=== PATIENT | female | born 1950 | race Caucasian/White ===

== ENCOUNTER 2017-03-18 09:20 | Emergency (ER) | payer SELFPAY ==
[2017-03-18] MEDS ORDERED: METHYLPREDNISOLONE PF 125MG/VIAL IVP ONE (09:44)
[2017-03-18] MEDS ORDERED: IPRATROPIUM/ALBUTEROL (0.5MG/3MG) NEB INH ONE (09:46)
--- NOTE | 2017-03-18 09:54 | Emergency Department Record ---
History of Present Illness - General Chief Complaint: Difficulty Breathing Stated Complaint: JUAN Time Seen by Provider: 03/18/17 09:38 Source: Patient Mode of Arrival: Ambulatory Limitations: No limitations - History of Present Illness Initial Comments: The patient is here due to having trouble breathing for 4 months. It has been getting progressively worse over the last 2 weeks so she called her PCP today and was told to go to the ER. She denies any CP, back pain, cough, fever, chills , or ST but is mainly having trouble when she breaths in. She has had mild SALEH for the last 2 weeks. The patient denies any hx of lung disease and has never smoked. MD Complaint: Shortness of breath Onset/Timin -: Month(s) Consistency: Constant Improves With: Nothing Worsens With: Movement - Related Data Previous Rx's Medication Instructions Recorded Albuterol Sulfate [Proair Hfa] 2 puff IH QID PRN #1 inhaler 03/18/17 Prednisone [Prednisone 20Mg] 40 mg PO DAILY #10 tab 03/18/17 Allergies Allergy/AdvReac Type Severity Reaction Status Date / Time No Known Allergies Allergy none Verified 03/18/17 09:35 Travel Screening - Travel/Exposure Within Last 30 Days Have you traveled within the last 30 days?: No - Travel/Exposure Within Last Year Have you traveled outside the [place] in the last year?: No - Additonal Travel Details Have you been exposed to anyone with a communicable illness?: No Review of Systems Constitutional: Denies: Chills, Fever Eyes: Denies: Eye discharge ENT: Denies: Congestion Respiratory: Reports: Dyspnea. Denies: Cough Past Medical History - SOCIAL HISTORY Smoking Status: Never smoker Alcohol Use: None Drug Use: None - RESPIRATORY Hx Respiratory Disorders: No - CARDIOVASCULAR Hx Cardio Disorders: No - NEURO Hx Neuro Disorders: No - GI Hx GI Disorders: No - Hx Genitourinary Disorders: No - ENDOCRINE Hx Endocrine Disorders: No Hx Thyroid Disease: Yes - MUSCULOSKELETAL Hx Musculoskeletal Disorders: No - PSYCH Hx Psych Problems: Yes Hx Depression: Yes - HEMATOLOGY/ONCOLOGY Hx Hematology/Oncology Disorders: No Family Medical History Any Significant Family History?: No Physical Exam - General General Appearance: Alert, Oriented x3, Cooperative, No acute distress - Head Head exam: Atraumatic, Normocephalic, Normal inspection - Eye Eye exam: Normal appearance, PERRL - ENT Throat exam: Normal inspection. negative: Tonsillar erythema, Tonsillar exudate - Neck Neck exam: Normal inspection, Full ROM. negative: Lymphadenopathy, Meningismus , Tenderness - Respiratory Respiratory exam: Normal lung sounds bilaterally, Stridor (at times when talking.). negative: Accessory muscle use (The patient is speaking in full sentences with no difficulty or dyspnea.), Decreased breath sounds, Wheezes - Cardiovascular Cardiovascular Exam: Regular rate, Normal rhythm, Normal heart sounds - GI/Abdominal GI/Abdominal exam: Soft, Normal bowel sounds. negative: Tenderness - Extremities Extremities exam: Normal inspection, Full ROM, Normal capillary refill. negative: Tenderness - Neurological Neurological exam: Normal gait. negative: Abnormal gait, Alert, Motor sensory deficit Course Vital Signs 03/18/17 09:26 Temperature 98.2 F Pulse Rate 72 Respiratory 18 Rate Blood Pressure 165/76 Pulse Ox 99 - Reevaluation(s) Reevaluation #1: The patient is doing better. She is breathing normally for her and is speaking in full sentences. She is having mild intermittent Stridor but again is conversing normally and has no stridor at rest when sitting and talking to me. Her RA biox is 99% and her lungs are clear. 03/18/17 11:26 Reevaluation #2: The patient is doing very well at this time. She denies any SOB or JUAN or ST and has no stridor at this time. I did discuss the CT results with her and the need for F/U with her PCP. 03/18/17 12:24 Medical Decision Making - Data Complexity MDM Data: Labs Ordered and/or Reviewed, X-Ray Ordered and/or Reviewed, EKG Ordered and/or Reviewed - Lab Data Result diagrams: 03/18/17 09:55 03/18/17 09:55 - EKG Data -: EKG Interpreted by Vt EKG: No Acute Changes, Normal EKG - Radiology Data Radiology results: Report reviewed (CXR: Neg ST Neck: Neg per Rad. Neck CT: Mild subglottic narrowing. O/W neg.) Disposition Disposition: Discharge Clinical Impression: Dyspnea Qualifiers: Dyspnea type: unspecified Qualified Code(s): R06.00 - Dyspnea, unspecified Disposition: Home, Self-Care Condition: (1) Good Instructions: Dyspnea (ED) Additional Instructions: Please use the inhaller and orals steroids as directed. Please see your PCP for recheck early next week. Please return to the ER for any increasing shortness of breath, fever, cough, or any pain. Prescriptions: Albuterol Sulfate [Proair Hfa] 2 puff IH QID PRN #1 inhaler PRN Reason: Cough And Difficulty Breathing Prednisone [Prednisone 20Mg] 40 mg PO DAILY #10 tab Forms: Patient Portal Access Time of Disposition: 12:29 Quality - Quality Measures Quality Measures: N/A - Blood Pressure Screening View Details: Yes Does Patient Have Any of the Following: No Blood Pressure Classification: Pre-Hypertensive BP Reading Systolic Measurement: 147 Diastolic Measurement: 83 Screening for High Blood Pressure: < Pre-Hypertensive BP, F/U Documented > [ G8950] Pre-Hypertensive Follow-up Interventions: Referral to alternative/primary care provider.
[2017-03-18 10:12] LABS: BASO % 0.3 % (0-6); EOS % 3.6 % (0-6); GRAN % 65.8 % (47-80); HEMATOCRIT 38.9 % (35.0-47.0); HEMOGLOBIN 12.2 gm/dl (11.6-16.0); LYMPH % 23.6 % (16-45); MEAN CELL VOLUME 90.3 fl (81-97); MEAN CORPUSCULAR HEMOGLOBIN 28.3 pg (27-33); MEAN CORPUSCULAR HGB CONC 31.4 g/dl (32-36); MEAN PLATELET VOLUME 10.4 fl (7.4-10.4); MONO % 6.7 % (0-9); PLATELET COUNT 340 K/uL (130-400); RED BLOOD COUNT 4.31 M/uL (3.80-5.40); RED CELL DISTRIBUTION WIDTH 14.7 % (11.5-14.5); WHITE BLOOD COUNT W/O DIFF 6.4 K/uL (4.2-12.2)
[2017-03-18 10:33] LABS: BLOOD UREA NITROGEN 15 mg/dL (8-23); CREATININE 0.5 mg/dL (0.5-0.9); EST GLOMERULAR FILTRATION RATE > 60 mL/min; GLUCOSE,RANDOM 98 mg/dL (74-109)
[2017-03-18 10:38] LABS: CKMB 2.1 ng/mL (<3.77); CREATINE PHOSPHOKINASE 90 U/L (26-192)
--- NOTE | 2017-03-19 12:38 | RADIOLOGY REPORT ---
EXAM: CHEST 2 VIEWS HISTORY: DIFFICULTY IN BREATHING. TECHNIQUE: Frontal and lateral views of the chest were performed. FINDINGS: Heart size is normal. Lung urbina are clear. Osseous structures are normal. IMPRESSION: NEGATIVE CHEST EXAMINATION. JOB NUMBER: [id number] MTDD
--- NOTE | 2017-03-19 12:40 | RADIOLOGY REPORT ---
EXAM: NECK, SOFT TISSUE HISTORY: DIFFICULTY IN BREATHING. TECHNIQUE: AP and lateral views of the soft tissues of the neck were performed. FINDINGS: Airway is patent. Epiglottis appears normal. Prevertebral soft tissues are normal. The osseous structures are normal. IMPRESSION: NEGATIVE SOFT TISSUES OF THE NECK. JOB NUMBER: [id number] MTDD
--- NOTE | 2017-03-19 12:55 | CT SCAN REPORT ---
EXAM: CT SCAN SOFT TISSUE NECK W CONTRAST HISTORY: STRIDOR TECHNIQUE. TECHNIQUE: Sequential axial images were obtained through the soft tissues of the neck after intravenous administration of 100 mL of Omnipaque-300 contrast material. Sagittal and coronal reformatted images were performed. FINDINGS: The naso and oropharynx appears normal. The tongue base appears normal. The epiglottis appears normal. True/false cords and trachea appear normal. There is mild narrowing of the subglottic airway, edema. Tracheal bronchiolitis is considered. Visualized lung apices appear normal. The mandibular and parotid glands appear normal. The visualized superior mediastinum appears normal. IMPRESSION: NARROWING OF THE SUBGLOTTIC AIRWAY, LIKELY RELATED TO CROUP. THE REMAINDER OF THE EXAMINATION IS UNREMARKABLE. JOB NUMBER: [id number] MTDD
== END 2017-03-18 12:40 | disposition home or self-care (01) ==
LOC: ER 09:20
DX: R06.00 Dyspnea, unspecified (principal); R06.1 Stridor
CPT/HCPCS: 99284 ×2; 96374; 82550; 85025; 82553; 80048; 84484; 85379; 71020; 70360; 70491; 94640; 93005; 93010; Q9967; J2930

== ENCOUNTER 2017-07-29 19:49 | Emergency (ER) | payer MEDICARE ==
[2017-07-29] MEDS ORDERED: 0.9 % SODIUM CHLORIDE 1000ML 1,000 ML IV SCH (20:00)
--- NOTE | 2017-07-29 20:01 | Emergency Department Record ---
History of Present Illness - General Chief Complaint: Syncope Stated Complaint: SYNCOPY,COUGH,SOB Time Seen by Provider: 07/29/17 19:51 Source: Patient Mode of Arrival: Wheelchair Limitations: No limitations Travel/Exposure to [place] Within 21 Days of Symptoms: No - History of Present Illness Initial Comments: 67 yo female presents to ED for evaluation of lower abdominal "cramping" that began this morning followed by possible syncope at home. Patient denies fevers , chills, cough, or chest pain symptoms. Patient denies vomiting or blood in the stool. Patient denies health problems other than "breathing problems", denies history of asthma/COPD. MD Complaint: Collapsed -: Second(s) Witnessed: No Injuries Sustained Associated with Event: None Current Symptoms: Abdominal pain Treatments Prior to Arrival: None - Mayra Coma Scale Eye Response: (4) Open spontaneously Motor Response: (6) Obeys commands Verbal Response: (5) Oriented [place] Total: 15 - Related Data Home Medications Medication Instructions Recorded Confirmed Last Taken Hydrochlorothiazide 12.5 mg PO DAILY 07/29/17 07/29/17 Unknown [Hydrochlorothiazide] Venlafaxine HCl [Venlafaxine HCl] 100 mg PO DAILY 07/29/17 07/29/17 Unknown Previous Rx's Medication Instructions Recorded Albuterol Sulfate [Proair Hfa] 2 puff IH QID PRN #1 inhaler 03/18/17 Allergies Allergy/AdvReac Type Severity Reaction Status Date / Time No Known Allergies Allergy none Verified 07/29/17 19:55 Review of Systems Constitutional: Denies: Chills, Fever, Malaise, Night sweats Eyes: Denies: Eye discharge, Eye pain ENT: Denies: Congestion, Ear pain, Epistaxis Respiratory: Denies: Cough, Dyspnea Cardiovascular: Denies: Chest pain, Dyspnea on exertion Endocrine: Denies: Fatigue, Heat or cold intolerance Gastrointestinal: Reports: Abdominal pain, Diarrhea. Denies: Nausea, Vomiting Genitourinary: Denies: Incontinence, Retention Musculoskeletal: Denies: Arthralgia, Back pain, Gout, Joint swelling Skin: Denies: Bruising, Change in color Neurological: Denies: Abnormal gait, Confusion, Headache, Seizure Psychiatric: Denies: Anxiety Hematological/Lymphatic: Denies: Anemia, Blood Clots Past Medical History - SOCIAL HISTORY Smoking Status: Never smoker Drug Use: None - RESPIRATORY Hx Respiratory Disorders: No - CARDIOVASCULAR Hx Cardio Disorders: No - NEURO Hx Neuro Disorders: No - GI Hx GI Disorders: No - Hx Genitourinary Disorders: No - ENDOCRINE Hx Endocrine Disorders: No Hx Thyroid Disease: Yes - MUSCULOSKELETAL Hx Musculoskeletal Disorders: No - PSYCH Hx Psych Problems: Yes Hx Depression: Yes - HEMATOLOGY/ONCOLOGY Hx Hematology/Oncology Disorders: No Physical Exam - General General Appearance: Alert, Oriented x3, Cooperative Limitations: No limitations - Head Head exam: Atraumatic, Normocephalic, Normal inspection Head exam detail: negative: Abrasion, Contusion, Allan's sign, General tenderness, Hematoma, Laceration - Eye Eye exam: Normal appearance. negative: Conjunctival injection, Periorbital swelling, Periorbital tenderness, Scleral icterus - ENT Ear exam: negative: Auricular hematoma, Auricular trauma Nasal Exam: negative: Active bleeding, Discharge, Dried blood, Foreign body Mouth exam: negative: Drooling, Laceration, Muffled voice, Tongue elevation - Neck Neck exam: Normal inspection. negative: Meningismus, Tenderness - Respiratory Respiratory exam: Normal lung sounds bilaterally. negative: Rales, Respiratory distress, Rhonchi, Stridor - Cardiovascular Cardiovascular Exam: Regular rate, Normal rhythm, Normal heart sounds - GI/Abdominal GI/Abdominal exam: Soft, Tenderness (Mild diffuse TTP to the lower quadrants bilterally). negative: Rebound, Rigid - Rectal Rectal exam: Deferred - exam: Deferred - Extremities Extremities exam: Normal inspection. negative: Pedal edema, Tenderness - Back Back exam: Denies: CVA tenderness (R), CVA tenderness (L) - Neurological Neurological exam: Alert, Oriented X3. negative: Motor sensory deficit - Psychiatric Psychiatric exam: Normal affect, Normal mood - Skin Skin exam: Normal color. negative: Abrasion Type of lesion: negative: abrasion Course - Reevaluation(s) Reevaluation #1: 07/29/17 20:00 EKG: NSR 98 Normal axis, normal intervals ST depression V4-V6, significantly worse then previous 03/18/17 Reevaluation #2: 07/29/17 20:53 Labs reviewed and are grossly unremarkable for an acute process. Patient is going for CT imaging at this time. Reevaluation #3: 07/29/17 22:16 CT Abdomen and Pelvis: Findings c/w colitis of the right and left colon cholelithiasis, no evidence for cholecystitis bilateral renal cysts, right>left. Patient was updated on all results, will initiate antibiotics for treatment of colitis and initiate transfer for syncope with EKG changes. Medical Decision Making - Lab Data Result diagrams: 07/29/17 20:00 07/29/17 20:00 Disposition Disposition: Transfer Clinical Impression: Colitis, Acute electrocardiogram changes, Syncope and collapse Disposition: Acute Care Hospital Transfer Transfer To: [facility] Reason For Transfer: Cardiology consultation Accepting Physician: Khari Time Discussed w/Accepting Physician: 22:46 Condition: (2) Stable Forms: Patient Portal Access Time of Disposition: 22:17 Quality - Quality Measures Quality Measures: N/A - Blood Pressure Screening Does Patient Have Any of the Following: No Blood Pressure Classification: Pre-Hypertensive BP Reading Systolic Measurement: 121 Diastolic Measurement: 76 Screening for High Blood Pressure: < Pre-Hypertensive BP, F/U Documented > [ G8950] Pre-Hypertensive Follow-up Interventions: Referral to alternative/primary care provider.
[2017-07-29 20:11] LABS: EOS % 0.1 % (0-6); HEMATOCRIT 44.2 % (35.0-47.0); LYMPH % 5.7 % (16-45); MEAN CELL VOLUME 87.5 fl (81-97); MEAN CORPUSCULAR HEMOGLOBIN 27.7 pg (27-33); MEAN CORPUSCULAR HGB CONC 31.7 g/dl (32-36); MEAN PLATELET VOLUME 10.1 fl (7.4-10.4); MONO % 7.1 % (0-9); PLATELET COUNT 311 K/uL (130-400); RED BLOOD COUNT 5.05 M/uL (3.80-5.40); RED CELL DISTRIBUTION WIDTH 14.8 % (11.5-14.5); WHITE BLOOD COUNT W/O DIFF 7.2 K/uL (4.2-12.2)
[2017-07-29 20:21] LABS: EST GLOMERULAR FILTRATION RATE > 60 mL/min
[2017-07-29 20:34] LABS: PLATELET ESTIMATE NORMAL (NORMAL)
[2017-07-29 20:37] LABS: GLUCOSE,RANDOM 119 mg/dL (74-109)
[2017-07-29 20:43] LABS: BLOOD UREA NITROGEN 27 mg/dL (8-23); CREATININE 0.7 mg/dL (0.5-0.9)
[2017-07-29 20:48] LABS: ALB/GLOB RATIO 1.6 (1.1-1.8); ALBUMIN 4.3 g/dL (4.0-5.0); ALT/SGPT 14 U/L (<33); AST/SGOT 20 U/L (10.0-35.0)
[2017-07-29 20:49] LABS: ALKALINE PHOSPHATASE 114 U/L (35-104)
[2017-07-29] MEDS ORDERED: METRONIDAZOLE IVPB 500 MG/100 ML BAG IVPB ONE (22:22)
[2017-07-29] MEDS ORDERED: CIPROFLOXACIN LACTATE/D5W 400 MG/200 ML BAG IVPB ONE (22:22)
[2017-07-29 22:24] LABS: URINE APPEARANCE CLEAR; URINE BILIRUBIN NEGATIVE (NEGATIVE); URINE BLOOD TRACE-I (NEGATIVE); URINE COLOR YELLOW; URINE GLUCOSE (UA) NEGATIVE (NEGATIVE); URINE KETONE NEGATIVE (NEGATIVE); URINE LEUKOCYTE ESTERASE NEGATIVE (NEGATIVE); URINE NITRITE NEGATIVE (NEGATIVE); URINE PROTEIN NEGATIVE (NEGATIVE); URINE UROBILINOGEN 0.2 E.U./dL (0.20 - 1.00)
[2017-07-29 22:35] LABS: URINE EPITHELIAL CELLS 0-2 (FEW); URINE RBC 0-2 (NONE SEEN); URINE WBC 0 - 2 (0-2/hpf)
--- NOTE | 2017-07-31 00:08 | CT SCAN REPORT ---
EXAM: CT SCAN ABDOMEN/PELVIS W CONTRAST HISTORY: LIGHTHEADED, BOWEL CRAMPS, DIARRHEA. HYSTERECTOMY. TECHNIQUE: Axial CT scan of the abdomen and pelvis performed following the intravenous administration of 100 mL of Omnipaque-300 as the IV contrast. No oral contrast was utilized. COMPARISON: CT urogram dated 05/18/13. FINDINGS: There again appear to be some tiny gallstones within the dependent portion of the gallbladder. These appear less obviously calcified than on the prior exam but cholelithiasis was present previously as well. No blurring of the adjacent pericholecystic tissues to suggest acute cholecystitis currently. The gallbladder is mildly distended, however. No biliary dilatation evident. No definite hepatic, splenic, adrenal, or pancreatic mass identified. There are multiple cysts in the right kidney again seen, also present previous with the largest again located posteriorly in the upper pole, today measuring about 5.3 cm in size with a CT density of 13 consistent with a cyst. There is probably a single tiny cyst in the left kidney as well, also present previously. Post-op hysterectomy with surgical clips in the pelvis as before. Small hiatal hernia. There is diffusely thick-walled appearance of the colon, particularly the left side of the colon but also the right side of the colon. This is new compared to the prior study and consistent with an acute diffuse colitis. There is no free intraperitoneal air or free intraperitoneal fluid evident. IMPRESSION: 1. APPEARANCE CONSISTENT WITH A DIFFUSE COLITIS, PARTICULARLY INVOLVING THE LEFT SIDE BUT ALSO THE RIGHT SIDE, NEW SINCE THE PRIOR CT OF 05/18/13. 2. BILATERAL RENAL CYSTS, LARGER AND MORE NUMEROUS ON THE RIGHT. 3. CHOLELITHIASIS AGAIN EVIDENT. SOME MILD DISTENTION OF THE GALLBLADDER BUT NO CONVINCING EVIDENCE OF ACUTE CHOLECYSTITIS CURRENTLY. 4. SMALL HIATAL HERNIA. 5. POST-OP HYSTERECTOMY. JOB NUMBER: [id number] [facility]
== END 2017-07-29 23:24 | disposition short-term general hospital (02) ==
LOC: ER 19:49
DX: R55 Syncope and collapse (principal); K52.9 Noninfective gastroenteritis and colitis, unspecified; K80.20 Calculus of gallbladder without cholecystitis without obstruction; R94.31 Abnormal electrocardiogram [ECG] [EKG]
CPT/HCPCS: 99285 ×2; 96365; 96366; 96368; 80053; 81001; 84484; 85027; 74177; 93005; 93010; Q9967; J0744; J7030